=== PATIENT | female | born 1935 | race Caucasian/White ===

== ENCOUNTER 2021-10-17 02:01 | Observation (INO) | payer MEDICARE, BC ==
[2021-10-17 02:41] LABS: #Eosinphils 0.1 thou/uL (0.0-0.7); #Lymphocytes 1.3 thou/uL (1.20-3.40); #Monocytes 0.5 thou/uL (0.11-0.59); %Basophils 0.4 % (0.0-1.0); %Eosinophils 1.7 % (0.0-10.0); %Lymphocytes 22.2 % (21.0-51.0); %Monocytes 8.6 % (0.0-10.0); %Neutrophils 67.1 % (42.0-75.0); Hemoglobin 14.7 g/dL (12.0-16.0); Mean Corpuscular HGB CONC 33.3 g/dL (32.0-36.0); Mean Corpuscular Hemoglobin 31.6 pg (27.0-31.0); Mean Corpuscular Volume 94.7 fL (78.0-98.0); Mean Platelet Volume 8.2 fL (7.4-10.4); Platelet Count 172 thou/uL (130-400); RBC Distribution Width 12.5 % (11.5-14.5); Red Blood Cell (RBC) Count 4.64 mill/uL (4.20-5.40); White Blood Cell (WBC) Count 5.9 thou/uL (4.8-10.8)
[2021-10-17 02:56] LABS: ALT (SGPT) 22 U/L (8-55); AST (SGOT) 21 U/L (5-34); Albumin 3.6 g/dL (3.4-4.8); Alkaline Phosphatase 86 U/L (40-110); Anion Gap 12 mmol/L (10-20); BUN (Urea Nitrogen) 15 mg/dL (9.8-20.1); Bilirubin, Total 1.1 mg/dL (0.2-1.2); Calc. Creatinine Clearance 0 mL/min (70-130); Calcium 8.8 mg/dL (7.8-10.44); Carbon Dioxide 29 mmol/L (23-31); Chloride 103 mmol/L (98-107); Globulin 2.8 g/dL (2.4-3.5); Glucose 100 mg/dL (83-110); Lipase 67 U/L (8-78); Magnesium 1.9 mg/dL (1.6-2.6); Potassium 3.8 mmol/L (3.5-5.1); Protein, Total 6.5 g/dL (5.8-8.1); Sodium 140 mmol/L (136-145)
[2021-10-17] MEDS ORDERED: Acetaminophen 325 MG TAB PO PRN (03:30)
[2021-10-17] MEDS ORDERED: Ondansetron ODT 4 MG TAB SL PRN (03:30)
[2021-10-17] MEDS ORDERED: Ondansetron PF 4 MG/2 ML Vial IVP PRN (03:30)
[2021-10-17] MEDS ORDERED: Aspirin 325 MG TAB ONE (03:59)
[2021-10-17 04:55] VITALS: BMI 35.5
[2021-10-17 05:44] LABS: Troponin I Less than 0.010 ng/mL (< 0.028)
[2021-10-17] MEDS ORDERED: Dronedarone HCl 400 MG TAB PO SCH (08:00)
[2021-10-17] MEDS ORDERED: FLU VACC QS2021-22(65YR UP)/PF 240 MCG/0.7 ML SYRINGE IM ONE (09:00)
[2021-10-17] MEDS ORDERED: Apixaban 5 MG TAB PO SCH (09:00)
[2021-10-17] MEDS ORDERED: Aspirin 81 mg Enteric Coated Tablet PO SCH (09:00)
[2021-10-17] MEDS ORDERED: Lisinopril 20 MG TAB PO SCH (09:00)
[2021-10-17 10:18] LABS: Troponin I Less than 0.010 ng/mL (< 0.028)
[2021-10-17 12:10] VITALS: BP 172/74; TEMP 97.4
[2021-10-17 14:54] LABS: SARS-CoV-2 PCR by NAA Not Detected (NotDetected)
[2021-10-17] MEDS ORDERED: Metoprolol Tartrate 100 MG TAB PO SCH (21:00)
[2021-10-17] MEDS ORDERED: Atorvastatin Calcium 40 MG TAB PO SCH (21:00)
== END 2021-10-17 13:20 | disposition home or self-care (01) ==
LOC: ERS 02:01 → 2SW 03:20
PROVIDERS: ADMIT Internal Medicine; ATTEND Hospitalist
DX: I48.91 Unspecified atrial fibrillation (principal); I16.0 Hypertensive urgency; I11.0 Hypertensive heart disease with heart failure; I50.32 Chronic diastolic (congestive) heart failure; I25.10 Atherosclerotic heart disease of native coronary artery without angina pectoris; E78.5 Hyperlipidemia, unspecified; I77.810 Thoracic aortic ectasia; Z79.01 Long term (current) use of anticoagulants; Z79.82 Long term (current) use of aspirin; Z79.899 Other long term (current) drug therapy; Z20.822 Contact with and (suspected) exposure to COVID-19
CPT/HCPCS: 71045; 83690; 83735; 84484 ×2; 93005; U0003; U0005; 36415; 80053; 84443; 85025; G0378

== ENCOUNTER 2021-12-10 06:44 | Day surgery (SDC) | payer MEDICARE, BC ==
[2021-12-07 09:32] VITALS: BMI 35.1
[2021-12-10] MEDS ORDERED: PROPOFOL 200 MG/20 ML VIAL ONE (08:45)
[2021-12-10] MEDS ORDERED: Lidocaine 1% PF 5 ML VIAL ONE (08:45)
== END 2021-12-10 10:00 | disposition home or self-care (01) ==
LOC: SDC 06:44
PROVIDERS: ATTEND Internal Medicine
PROC: 0DBP8ZX Excision of Rectum, Via Natural or Artificial Opening Endoscopic, Diagnostic (ICD-10-PCS; principal; 2021-12-10)
PROC: 0DBL8ZX Excision of Transverse Colon, Via Natural or Artificial Opening Endoscopic, Diagnostic (ICD-10-PCS; 2021-12-10)
PROC: 0W3P8ZZ Control Bleeding in Gastrointestinal Tract, Via Natural or Artificial Opening Endoscopic (ICD-10-PCS; 2021-12-10)
DX: D12.8 Benign neoplasm of rectum (principal); K63.5 Polyp of colon; K55.21 Angiodysplasia of colon with hemorrhage; K57.31 Diverticulosis of large intestine without perforation or abscess with bleeding; K63.89 Other specified diseases of intestine; K64.8 Other hemorrhoids; K64.4 Residual hemorrhoidal skin tags; I48.0 Paroxysmal atrial fibrillation; I10 Essential (primary) hypertension; E78.00 Pure hypercholesterolemia, unspecified; E66.9 Obesity, unspecified; Z68.35 Body mass index [BMI] 35.0-35.9, adult; Z86.010 Personal history of colon polyps; Z80.0 Family history of malignant neoplasm of digestive organs; Z79.82 Long term (current) use of aspirin; Z79.899 Other long term (current) drug therapy
CPT/HCPCS: 88305; J2704

== ENCOUNTER 2024-02-14 16:00 | Outpatient (CLI) | payer MEDICARE, BC | END 2024-02-14 16:01 | disposition home or self-care (01) | LOC: SLEEPLAB 16:00 | PROVIDERS: ATTEND Family Medicine | DX: G47.33 Obstructive sleep apnea (adult) (pediatric) (principal); G47.61 Periodic limb movement disorder | CPT/HCPCS: 95810 ==

== ENCOUNTER 2024-06-14 23:25 | Inpatient (IN) | payer MEDICARE, BC ==
[2024-06-15 00:34] LABS: #Basophils Less than 0.03 10x3/uL (0.0-0.2); %Basophils 0.4 % (0.0-1.0); %Eosinophils 0.9 % (0.0-10.0); %Lymphocytes 12.3 % (21.0-51.0); %Monocytes 12.1 % (0.0-10.0); %Neutrophils 74.1 % (42.0-75.0); Hematocrit 43.9 % (36.0-47.0); Hemoglobin 13.6 g/dL (12.0-16.0); Mean Corpuscular Hemoglobin 29.7 pg (27.0-31.0); Mean Corpuscular Volume 95.9 fL (78.0-98.0); Mean Platelet Volume 10.6 fL (7.4-10.4); Platelet Count 160 10x3/uL (130-400); RBC Distribution Width 14.2 % (11.5-14.5); Red Blood Cell (RBC) Count 4.58 mill/uL (4.20-5.40)
[2024-06-15 00:51] LABS: ALT (SGPT) 24 U/L (8-55); AST (SGOT) 18 U/L (5-34); Albumin 3.3 g/dL (3.4-4.8); Alkaline Phosphatase 83 U/L (40-110); Anion Gap 17 mmol/L (10-20); BUN (Urea Nitrogen) 13 mg/dL (9.8-20.1); Calc. Creatinine Clearance 0 mL/min (70-130); Calcium 9.4 mg/dL (7.8-10.44); Carbon Dioxide 28 mmol/L (23-31); Chloride 103 mmol/L (98-107); Estimated GFR 53; Globulin 3.4 g/dL (2.4-3.5); Glucose 100 mg/dL (83-110); Lipase 26 U/L (8-78); Magnesium 2.3 mg/dL (1.6-2.6); Potassium 4.1 mmol/L (3.5-5.1); Protein, Total 6.7 g/dL (5.8-8.1); Sodium 144 mmol/L (136-145)
[2024-06-15 01:02] LABS: Troponin I 0.014 ng/mL (< 0.028)
[2024-06-15 01:08] LABS: INR-International Normal Ratio 2.1; PTT 34.9 sec (22.9-36.1); Prothrombin Time 23.4 sec (12.0-14.7)
[2024-06-15] MEDS ORDERED: Furosemide 40 MG (4 mL) VIAL ONE (02:14)
[2024-06-15] MEDS ORDERED: Acetaminophen 325 MG TAB PO PRN (02:52)
[2024-06-15] MEDS ORDERED: Diazepam 5 MG TAB PO PRN (03:08)
[2024-06-15 05:33] LABS: Troponin I 0.014 ng/mL (< 0.028)
[2024-06-15 07:19] LABS: Troponin I 0.011 ng/mL (< 0.028)
[2024-06-15] MEDS ORDERED: Atorvastatin Calcium 40 MG TAB ONE (08:42)
[2024-06-15] MEDS ORDERED: Apixaban 5 MG TAB ONE (08:42)
[2024-06-15] MEDS ORDERED: Potassium Chloride 20 MEQ TAB ONE (08:42)
[2024-06-15] MEDS ORDERED: Magnesium Glycinate [Mag Glycinate] 100 MG Tablet PO SCH (09:00)
[2024-06-15] MEDS: Potassium Chloride 20 MEQ TAB PO SCH (09:40)
[2024-06-15] MEDS: Atorvastatin Calcium 40 MG TAB PO SCH ×2 (09:40→21:01)
[2024-06-15] MEDS: Apixaban 5 MG TAB PO SCH (09:40)
[2024-06-15] MEDS: Dronedarone HCl 400 MG TAB PO SCH (12:16)
[2024-06-15] MEDS: Losartan 25 MG TAB PO SCH (12:16)
[2024-06-15] MEDS: Cholecalciferol 1,000 UNITS (25 MCG) TAB PO SCH (12:16)
[2024-06-15 12:24] VITALS: BMI 36.7
[2024-06-15] MEDS: Furosemide 40 MG (4 mL) VIAL SLOW IVP SCH (18:14)
[2024-06-15] MEDS: FLU (Fluad Triv) TS24-25 (65UP)/MF59C/PF 45 MCG/0.5 ML Syringe IM ONE (21:01)
[2024-06-16 05:03] LABS: #Basophils 0.03 10x3/uL (0.0-0.2); %Basophils 0.5 % (0.0-1.0); %Eosinophils 1.4 % (0.0-10.0); %Lymphocytes 12.1 % (21.0-51.0); %Monocytes 11.8 % (0.0-10.0); %Neutrophils 73.5 % (42.0-75.0); Hematocrit 42.7 % (36.0-47.0); Hemoglobin 13.5 g/dL (12.0-16.0); Mean Corpuscular HGB CONC 31.6 g/dL (32.0-36.0); Mean Corpuscular Hemoglobin 29.4 pg (27.0-31.0); Mean Platelet Volume 10.3 fL (7.4-10.4); Platelet Count 153 10x3/uL (130-400); RBC Distribution Width 13.9 % (11.5-14.5); Red Blood Cell (RBC) Count 4.59 mill/uL (4.20-5.40)
[2024-06-16 05:16] LABS: Anion Gap 13 mmol/L (10-20); BUN (Urea Nitrogen) 11 mg/dL (9.8-20.1); Calc. Creatinine Clearance 63 mL/min (70-130); Calcium 8.9 mg/dL (7.8-10.44); Carbon Dioxide 35 mmol/L (23-31); Chloride 99 mmol/L (98-107); Estimated GFR 62; Glucose 95 mg/dL (83-110); Potassium 3.7 mmol/L (3.5-5.1); Sodium 143 mmol/L (136-145)
[2024-06-16] MEDS: Furosemide 40 MG (4 mL) VIAL SLOW IVP SCH (11:29)
[2024-06-17 07:17] LABS: #Basophils 0.03 10x3/uL (0.0-0.2); %Basophils 0.4 % (0.0-1.0); %Eosinophils 1.5 % (0.0-10.0); %Lymphocytes 11.7 % (21.0-51.0); %Monocytes 11.3 % (0.0-10.0); %Neutrophils 74.7 % (42.0-75.0); Hemoglobin 14.5 g/dL (12.0-16.0); Mean Corpuscular Hemoglobin 29.6 pg (27.0-31.0); Mean Corpuscular Volume 89.8 fL (78.0-98.0); Mean Platelet Volume 10.8 fL (7.4-10.4); Platelet Count 175 10x3/uL (130-400); RBC Distribution Width 13.9 % (11.5-14.5)
[2024-06-17 07:41] LABS: Anion Gap 15 mmol/L (10-20); BUN (Urea Nitrogen) 14 mg/dL (9.8-20.1); Calc. Creatinine Clearance 54 mL/min (70-130); Calcium 9.1 mg/dL (7.8-10.44); Carbon Dioxide 31 mmol/L (23-31); Chloride 97 mmol/L (98-107); Estimated GFR 55; Glucose 88 mg/dL (83-110); Potassium 3.7 mmol/L (3.5-5.1); Sodium 139 mmol/L (136-145)
[2024-06-17 10:11] VITALS: BP 128/68; TEMP 98.1
== END 2024-06-17 13:38 | disposition home or self-care (01) | DRG 291 ==
LOC: ERS 23:25 → ERHOLD 06-15 02:43 → OBSVTOIN 06-15 11:23 → 2NO 06-15 17:26
PROVIDERS: ADMIT Family Medicine; ATTEND Family Medicine
DX: I11.0 Hypertensive heart disease with heart failure (principal); I50.33 Acute on chronic diastolic (congestive) heart failure; J96.01 Acute respiratory failure with hypoxia; E78.5 Hyperlipidemia, unspecified; I48.91 Unspecified atrial fibrillation; Z88.8 Allergy status to other drugs, medicaments and biological substances; Z79.899 Other long term (current) drug therapy; Z79.01 Long term (current) use of anticoagulants; Z90.49 Acquired absence of other specified parts of digestive tract; Z98.891 History of uterine scar from previous surgery
CPT/HCPCS: 36415; 36416; 71045; 80048; 80053; 83690; 83735; 83880; 84145; 84443; 84484; 85025; 85610; 85730; 93005; 93010; 94760; 96374; J1940